=== PATIENT | male | born 2000 | race Caucasian/White ===

== ENCOUNTER 2020-02-22 16:00 | Outpatient (REF) | payer MEDICAID, SELFPAY ==
[2020-02-26 02:13] LABS: SARS-CoV-2 RNA Undetected (Undetected); SARS-CoV-2 Specimen Source Nasopharynx
== END 2020-02-22 16:20 ==
LOC: NCHCN 16:00
PROVIDERS: PCP Nurse Practitioner Family; Visit Provider Nurse Practitioner Family
DX: R50.9 Fever, unspecified (principal); R51 Headache; J02.9 Acute pharyngitis, unspecified
CPT/HCPCS: U0003

== ENCOUNTER 2024-05-21 17:29 | Emergency (ER) | payer MEDICAID, SELFPAY ==
[2024-05-21 17:30] VITALS: BP 135/74; PULSE 68; RESP 16; TEMP 36.6; O2SAT 98
[2024-05-21 17:35] VITALS: BP 135/74; PULSE 68; RESP 16; TEMP 36.6; O2SAT 98
--- NOTE | 2024-05-21 17:39 | ED.GENADUL_ITS ---
Discharge Plan Disposition Patient Disposition: Home Condition: Stable Discharge Details Clinical Impression: Epitrochlear adenopathy Primary Care Provider: Unknown,Unknown ED Provider: Chinmay Sparrow Home Meds and New Rx's Prescriptions: No Action No Known Home Meds Discharge Instructions Instructions: Lymphadenitis Additional Instructions: You were seen in the emergency department for the inflammation of your epitrochlear lymph node. This likely needs to be examined by ultrasound, I am placing you on the list to get primary care established, if you have trouble establishing primary care within a reasonable timeline you could return to the emergency department Wednesday through Wednesday during the day for ultrasound. Otherwise please apply hot compress to the area and take regular dose of anti- inflammatories and see if the mild lymphadenopathy goes down, please return to the emergency department for any severe increase in swelling unintentional weight loss or loss of appetite or drenching night sweats. HPI General Date/Time Provider Initiated Documentation: 05/21/24 17:36 . HPI Narrative: 23 year-old male presents to ED today by POV/ambulating with a chief complaint of L elbow lump, mild pain with onset noticed yesterday. Quality described as tender to touch, no radiation to redness, unilateral arm swelling, firm or hard or asymmetrical nodular swelling, numbness or tingling, neck pain, shoulder pain, endorses some pain in his axilla without palpable abnormality the other day. Severity is described as mild to moderate. Palliating factors include nothing specific attempted. Provoking factors include nothing specific. Events leading up to the incident/Associated Symptoms: Patient denies history of any cat scratches or other laceration pathology or abrasions to this extremity. Patient not anticoagulated. Related Data Home Medications ?Medication ?Instructions ?Recorded ?Confirmed Unknown [No Known Home Meds] 04/29/13 05/21/24 Allergies Allergy/AdvReac Type Severity Reaction Status Date / Time No Known Allergies Allergy Unverified 05/21/24 17:33 General Stated Complaint: GenMedical ARLIN: 3 Review of Systems All systems reviewed & are unremarkable except as noted in HPI and below Exam Narrative Exam Narrative: GENERAL APPEARANCE: Well-nourished, non-toxic, awake and alert, atraumatic, no acute distress. SKIN: Warm, pink, dry, intact, without rashes/lesions/ulcerations. HEAD: Normocephalic, atraumatic, normal hair distribution for gender/age. EYES: Normal conjunctiva, no exudates on lids/lashes. ENT: Nares patent, no circumoral cyanosis, no facial swelling NECK: Supple, trachea midline, painless cervical ROM. LUNGS/CHEST: Non-labored respirations, normal A/P diameter, symmetrical expansion, no chest wall deformity HEART (CV/PV): No peripheral edema, no JVD. ABDOMEN: Soft, non-distended, no guarding. MSK: Normal ROM, no swelling/deformity to bilateral UEs or LEs, moving all extremities without weakness, no cyanosis, spine midline without tenderness, normal curvature, mild lymphadenopathy of the left epitrochlear lymph node, no axillary lymphadenopathy palpable, no redness, no unilateral arm swelling, neurovascular intact distal NEURO: Mental Status AAOx4 - alert to person, place, time, events No facial droop, no forehead involvement. Motor: No focal weakness - strength 5/5 in bilateral UEs and LEs, proximal and distal, symmetric. Sensory: sensation intact to light touch globally. Gait normal: patient ambulated without ataxia into ED room. PSYCH: euthymic, cooperative, pleasant, appropriate speech Course Vital Signs Vital signs: Vital Signs Temperature 36.6 C 05/21/24 17:30 Pulse 68 05/21/24 17:30 Respiratory Rate 16 05/21/24 17:30 Blood Pressure 135/74 05/21/24 17:30 Pulse Oximetry 98 05/21/24 17:30 Temperature 36.6 C 05/21/24 17:35 Temperature Source Oral 05/21/24 17:35 Pulse 68 05/21/24 17:35 Respiratory Rate 16 05/21/24 17:35 Respiratory Effort Normal, Non-Labored 05/21/24 17:33 Blood Pressure 135/74 05/21/24 17:35 Blood Pressure Position Sitting 05/21/24 17:35 Pulse Oximetry 98 05/21/24 17:35 Oxygen Delivery Method Room Air 05/21/24 17:35 Oxygen Flow Rate 0 05/21/24 17:35 Pain Level 2 05/21/24 17:35 Medical Decision Making This dictation utilizes [id number]-mv-ghus dictation software and may contain unedited grammatical errors. 23 year-old male presents to ED today by POV/ambulating with a chief complaint of L elbow lump, mild pain with onset noticed yesterday. Quality described as tender to touch, no radiation to redness, unilateral arm swelling, firm or hard or asymmetrical nodular swelling, numbness or tingling, neck pain, shoulder pain, endorses some pain in his axilla without palpable abnormality the other day. Severity is described as mild to moderate. Palliating factors include nothing specific attempted. Provoking factors include nothing specific. Events leading up to the incident/Associated Symptoms: Patient denies history of any cat scratches or other laceration pathology or abrasions to this extremity. Patients' medical history: Negative, otherwise healthy. Family and social history: Noncontributory. Pertinent exam findings / vital signs include mild lymphadenopathy of the left epitrochlear lymph node, no axillary lymphadenopathy palpable, no redness, no unilateral arm swelling, neurovascular intact distal. Differential / pathologies of concern include reactive lymphadenopathy, unlikely cat scratch disease, unlikely HIV or other pathology, unlikely clot pathology. Diagnostic studies of: -D-dimer, negative. Interventions of: -None. ED Course/Assessment/Plan: 23-year-old male presents with tenderness to epitrochlear lymph node, otherwise has no acute pathology, cannot recall any laceration or abrasion to the area, he may be having reactive lymphadenopathy but I think he should undergo an outpatient ultrasound of this lymph node, he has no primary care but I do recommend that he establish this and placed him on referral list I think there is no emergent pathology occurring and that he can pursue an outpatient workup for this problem as there is no ultrasound at this time at this facility. Findings not consistent with infection, constitutional syndrome. Disposition of epitrochlear adenopathy. Patient verbalized understanding of the plan and return to ED criteria and engaged in shared decision making. Medical Records Medical records reviewed: Yes I reviewed the patient's medical records. Quality:[facility] Health Related Social Needs: No Data to Display [facility] All Active Problems (Updated 05/21/24 @ 18:50 by JAMES Tello) Epitrochlear adenopathy (Acute) Social History Smoking/Tobacco Use Status: Current every day Tobacco Type: cigarettes Smoking risk assessment performed?: Yes Alcohol Intake: current Alcohol Intake frequency: a few times a month Drug use: Daily Substance use type: marijuana Do you feel safe at home: Yes Do you feel safe in your relationship?: Yes
[2024-05-21 18:29] LABS: D-Dimer 166 ng/mlFEU (<500)
--- OUTSIDE RECORDS SUMMARY | 2024-05-21 18:42 | XMS_ITS | Clinical Summary ---
Author Organization [facility] Address [address] [place] [id number] Care Team Providers Care Trust Clerk Name Role Phone Perfecto Messina MD Primary Care Provider Unavailabl e Allergies No known active allergies Medications No known medications Active Problems Problem Noted Date Diagnosed Date Syncope and collapse 07/25/2013 Surgical History Surgery Date Site/Laterality Comments ELBOW SURGERY after a brake at 7 years old no complications Family History Medical History Relation Comments Cancer Maternal Grandfather Congenital heart defects Other hole in heart with surgery repair Relation Status Comments Father Alive Maternal Grandfather (Age 57) Maternal Grandmother Alive Mother Alive Other Alive Paternal Grandfather Alive Paternal Grandmother Alive Sister 1 Alive 01/01/99 heal thy Sister 2 Alive hea lthy Social History Tobacco Use Types Packs/Day Years Used Date Smoking Tobacco: Never Alcohol Use Standard Drinks/Week Comments Not Asked 0 (1 standard drink = 0.6 oz pur e alcohol) Interpersonal Safety Answer Date Record ed Physically Hurt Never 01/07/2020 Verbally Threaten Not on file 01/07/2020 Sex and Gender Information Value Date Recorded Sex Assigned at Not on file Legal Sex Male 10:37 EST Gender Identity Not on file Sexual Orientation Not on file History Length Weight Head Circum Date/Time Gestation Age D/C Weight APGARs Delivery Method Feeding 7 lb (3.175 kg) 2000 40 wks Vaginal, Spontaneous No complications Obstetrics History Last Filed Vital Signs Vital Sign Reading Time Taken Comments Blood Pressure 95/54 07/24/2013 1008 EST right arm sitting up Pulse 96 07/24/2013 1008 EST Temperature - - Respiratory Rate 20 07/24/2013 1008 EST Oxygen Saturation 100% 07/24/2013 100 8 EST Inhaled Oxygen Concentration - - Weight 41.8 kg (92 lb 2.4 oz) 07/24/2013 1008 EST Height 163.5 cm (5' 4.37) 07/24/2013 1 008 EST Body Mass Index 15.64 07/24/2013 1008 EST Plan of Treatment Health Maintenance Due Date Last Done Comments Hepatitis C Screen 2000 Hepatitis B Vaccine (1 of 3 - 19+ 3-dose series) 05/29 COVID-19 Vaccine (2023- season) 2024 Insurance MEDICAID O [place] Care Teams Trust Clerk Relationship Specialty Start Date End Date Perfecto Messina MD PCP - General 07/04/13
--- OUTSIDE RECORDS SUMMARY | 2024-05-21 18:42 | XMS_ITS | Referral Summary ---
Author Organization [facility] Address [address] [place] [address] Care Team Providers Care Puppet Developer Name Role Phone Perfecto Messina MD Primary Care Provider Unavailabl e Allergies No known active allergies Medications No known medications Active Problems Problem Noted Date Diagnosed Date Syncope and collapse 07/25/2013 Social History Tobacco Use Types Packs/Day Years [...] on file Sexual Orientation Not on file Last Filed Vital Signs Vital Sign Reading [...] 15.64 07/24/2013 1008 EST Plan of Treatment Not on file Insurance [place] Care Teams Puppet Developer Relationship Specialty Start Date End Date Perfecto Messina MD PCP - General 07/04/13
--- OUTSIDE RECORDS SUMMARY | 2024-05-21 18:42 | XMS_ITS | Encounter Summary ---
Author Organization [facility] Address [address] [place] [address] Care Team Providers Care Fuselage Framer Name Role Phone Perfecto Messina MD Primary Care Provider Unavailabl e Reason for Visit * Reason Onset Date Comments Referral Request 07/04/2013 Encounter Details Date Type Department Care Team (Late st Contact Info) Description 07/04/2013 Telephone [facility] Pediatric Cardiology - [facility] [address] [place], [place] [id number] Marcell Benitez MD [address] [place] [phone] Referral Request Social History Tobacco Use Types Packs/Day Years Used Date Smoking Tobacco: Never Assessed Sex and Gender Information Value Date Recorded Sex Assigned at Not on file Legal Sex Male 10:37 EST Gender Identity Not on file Sexual Orientation Not on file documented as of this encounter Miscellaneous Notes * Telephone Encounter - Kandi Arrieta - 07/04/2013 6745 EST Pierre Mcghee 2000 [id number] New Patient Appointment: Referring MD: Dr. Messina Dx: Syncope, 4 spells in last year Tests: ECG in office (copy rec'd), labs (copy rec'd) Other: Office notes rec'd Ins[place] [id number] Appt: Jul [address] Benitez New patient info pack sent: 07/05 documented in this encounter Plan of Treatment Not on file documented as of this encounter Visit Diagnoses Not on filedocumented in this encounter Care Teams Fuselage Framer Relationship Specialty Start Date End Date Perfecto Messina MD PCP - General 07/04/13 documented as of this encounter
--- OUTSIDE RECORDS SUMMARY | 2024-05-21 18:42 | XMS_ITS | Encounter Summary ---
Author Organization [facility] Address [address] [place] [address] Care Team Providers Care Felting Machine Operator Name Role Phone Perfecto Messina MD Primary Care Provider Unavailabl e Reason for Visit * Reason Comments Heart Problem NPV Syncope. In the past year or so has had 4 episodes of syncope. Has some dizziness without syncope every month. No hospitalizations or illnesses. Energy level is good. Gym class is his only actiivity. Coffee every day. Eating well and sleep well. No CP or SOB. Pale looking on a regular basis. No cyanosis. No anxiety. No other health concerns. Encounter Details Date Type Department Care Team (Late st Contact Info) Description 07/24/2013 9:30 EST Office Visit [facility] - [facility] [place] [address] [place] [phone] Imelda Serrato MD [address] [place] [phone] Syncope and collapse (Primary Dx) Social History Tobacco Use Types Packs/Day Years Used Date Smoking Tobacco: Never Alcohol Use Standard Drinks/Week Comments Not Asked 0 (1 standard drink = 0.6 oz pur e alcohol) Sex and Gender Information Value Date Recorded Sex Assigned at Not on file Legal Sex Male 10:37 EST Gender Identity Not on file Sexual Orientation Not on file documented as of this encounter Last Filed Vital Signs Vital Sign Reading [...] Body Mass Index 15.64 07/24/2013 1008 EST Body Mass Index Percentile 5.98% 07/24 1008 EST Growth Chart: [facility] (Boys, 2-2 0 Years) documented in this encounter Progress Notes * Imelda Serrato MD - 07/25/2013 1018 EST Subjective: Patient ID: Pierre Nuñez is an 13 y.o. male. Chief Complaint Patient presents with ??? Heart Problem NPV Syncope. In the past year or so has had 4 episodes of syncope. Has some dizziness without syncope every month. No hospitalizations or illnesses. Energy level is good. Gym class is his only actiivity. Coffee every day. Eating well and sleep well. No CP or SOB. Pale looking on a regular basis. Nocyanosis. No anxiety. No other health concerns. LLOYD Jay is a 13 year old seen in consultation at the request of Dr. Messina regarding a history of recurrent syncope. He has fainted 4 times over the last year. The first occurred after gym class activity. He does notrecall the exact details. The school called his mother to report that he had had a fainting episode. He was not injured. He does not believe that the event took a took place at peak exercise. He has had 3 other events. One occurred at home shortly after he got out of bed in the morning. He was on an upstairs landing when he felt lightheaded and eventually fell to the floor without injury. He had an additional event in the library, and the most recent one occurring in the kitchen and witnessed by his mother. Pierre describes a fairly typical sequence of events. Initially he will began experiencing visual changes with narrowing of his visual monsalve. He then experiences some nausea and sweating. He does notdescribe any auditory changes. He does notice some change in his color perception. After a period of perhaps 30 seconds, he falls to the floor. On the occasion witnessed by his mother, she said he looked quite pale and she held him up and eased him to the floor. In all cases he recovered consciousness quite quickly. He does not describe persistent fatigue or disorientation after fainting. He doesnot describe any palpitations or tachycardia. There have been no seizure-like movements during the episodes. He says he feels dizziness almost daily, but most of it sounds as though it is orthostaticand transient. Other than these episodes, he has had no other significant medical events. He does not describe anychange in his energy level or exercise tolerance. He is not involved in any athletic circumstances,but has no difficulty with routine activity. He has had no major illnesses recently. He has had no history of chronic coughing, wheezing, or respiratory difficulties. He is not currently on any medication. He drinks coffee and juice daily, but does not have a large intake of water. His dietary history sounds unremarkable. He came to today's with his mother, who is anxious about these episodes, but who has no other concerns about his health. There is no family history of sudden early or fainting. There is no problem list on file for this patient. History reviewed. No pertinent past medical history. Length Weight Head Circum Discharge Weight as of 07/24/2013 3175 g (7 lb) Gestation Age (wks) Delivery Method Duration of Labor Feeding 40 Vaginal, Spontaneous Delivery 1 5 10 Days in Hospital Hospital Name Hospital Location Comments No complications Past Surgical History Procedure Laterality Date ??? Elbow surgery after a brake at 7 years old no complications Family History Family Problem Relation Name Age of Onset Comments Source as of 07/24/2013 Cancer Maternal Grandfather Provider Congenital heart defects Other moms cousin hole in heart with surgery repair Provider Family Status Relation Name Status Age Comments Source as of 07/24/2013 Mother Alive Provider Father Alive Provider Sister Arlyn Alive 01/01/99 healthy Provider Maternal Grandmother Alive Provider Maternal Grandfather 57 Provider Paternal Grandmother Alive Provider Paternal Grandfather Alive Provider Other moms cousin Alive Provider Sister Kayla Alive healthy Provider Social Social History ??? Lives with Parents ??? Mother's name Maryjane ??? Father's name Florencio ??? Education Grade 7 ??? Reported academic performance Doing well History Social History ??? Marital Status: Single Spouse Name: N/A Number of Children: N/A ??? Years of Education: N/A Occupational History ??? Not on file. Social History Main Topics ??? Smoking status: Never Smoker ??? Smokeless tobacco: Not on file ??? Alcohol Use: Not on file ??? Drug Use: Not on file ??? Sexually Active: Not on file Other Topics Concern ??? Not on file Social History Narrative ??? No narrative on file No outpatient prescriptions have been marked as taking for the 07/24/13 encounter (Office Visit) with Imelda Serrato MD. No Facility-Administered Medications for the 07/24/13 encounter (Office Visit) with Imelda Serrato MD. Allergies No Known Allergies ROS A general 10 point review of systems was performed and was negative except as noted. Objective: BP 95/54 Pulse 96 Resp 20 Ht 163.5 cm (64.37) Wt 41.8 kg (92 lb 2.4 oz) BMI 15.64 kg/m2 SpO2 100% Body mass index is 15.64 kg/(m^2). Body surface area is 1.38 meters squared. 6%ile based on CDC 2-20 Years BMI-for-age data. Normalized sfcwhi-zku-xuiqbfgas length data available only for age 0 to 36 months. 78%ile based on CDC 2-20 Years xkdlqpu-jkh-uyr data. 29%ile based on CDC 2-20 Years vknlzx-mvv-oai data. Extended Vitals 07/24/2013 BP -- BP Device BP Machine BP Cuff Location Right leg BP Cuff Sizes -- Patient Position Sitting Physical Exam General: Alert and oriented. Age appropriate interaction Neurologic: Normal strength and muscle tone. HEENT: [place] mucosa. No cervical adenopathy. Midline trachea. Normal thyroid. No venous distension. Chest: No pectus. Quiet precordium. Normal, symmetric aeration. No wheezes or rales. Normal respiratory effort. Abdomen: Soft. No masses. Liver not enlarged. Extremities: Warm with normal perfusion. Normal brachial and femoral pulses. No lower extremity pulse delay. Cardiac: Normal first heart sound. Physiologically split second heart sound with normal pulmonic component. No significant murmurs.. No gallops. No click. Testing and Laboratory Preliminary Results: ECG: Normal. No preexcitation. Normal QT interval. Assessment and Plan: Pierre has a typical history of vasovagal syncope. I do not think that these events represent underlying cardiac pathology or arrhythmia. His examination and electrocardiogram are normal. We discussedthe mechanism of fainting. I also explained that this is a fairly common symptom in teenagers. We discussed hydration, including carrying a water bottle in school. Most importantly, I explained that when he develops typical visual symptoms, he needs to get his head as low as possible. Ideally, thiswould be on the floor with his feet propped up. This should abort any further episodes. I do not think there needs to be any change in his activity recommendations. I also told him that we would wantto know if he experiences any sensation of palpitations or tachycardia as his first symptom, or anyfainting at peak exercise. I have not scheduled a followup appointment, but the family will be in touch if they have any additional concerns. I think they were quite reassured by today's discussion. Armando shay will attempt to increase his hydration, which should blunt further symptoms. documented in this encounter Plan of Treatment Not on file documented as of this encounter Procedures Procedure Name Priority Date/Time Associated Diagnosis Comments ECG REPORT - SCANNED 07/28/2013 11:11 EST EKG 12-LEAD Routine 07/24/2013 10:19 EST Syncope and collapse documented in this encounter Results * ECG REPORT - SCANNED (07/28/2013 11:11 EST) 07/28/2013 11:1 1 EST us Scan 2 Soda Jerker PROCEDURE/MINOR SURGICAL OR DERABLES Final Result * EKG 12-LEAD (07/24/2013 10:19 EST) 07/24/2013 10:1 9 EST Narrative [facility] EKG - 07/25/2013 15:27 EST ?[facility] ? Test Date: ?2013-07-24 Pat Name: ? PIERRE SAVANNAH ? Department: ?? Pedi-Card ? Room: ? Gender: ? M ?String Studies Director: ?? [id number] : ?2000 ? Requested By: IMELDA SERRATO MD Order Number: [id number] ? Reading MD: ?? IMELDA SERRATO MD ? Measurements Intervals ?Bangs ? Rate: ? 74 ? P: ?66 NV: ? 157 ?QRS: ?89 QRSD: ? 85 ? T: ?70 QT: ? 389 ? QTc: ?416 ? Interpretive Statements ..PEDIATRIC ECG INTERPRETATION SINUS RHYTHM No previous ECG available for comparison I have reviewed the tracing and have either agreed or edited the findings in this report. Electronically Signed On 07-25-13 15:27:13 EST by IMELDA SERRATO MD. Procedure Note Imelda Serrato MD - 07/25/2013 [facility] Test Date: 2013-07-24 Pat Name: PIERRE NUÑEZ Department: Pedi-Card Room: Gender: String Studies Director: [id number] : 2000 Requested By: IMELDA SERRATO MD Order Number: [id number] Reading MD: IMELDA SERRATO MD Measurements Intervals Bangs Rate: 74 P: 66 NV: 157 QRS: 89 QRSD: 85 T: 70 QT: 389 QTc: 416 Interpretive Statements ..PEDIATRIC ECG INTERPRETATION SINUS RHYTHM No previous ECG available for comparison I have reviewed the tracing and have either agreed or edited the findingsin this report. Electronically Signed On 07-25-13 15:27:13 EST by [facility]. us Imelda Serrato MD CARDIAC ECG ORDERABLES Fin al Result [facility] EKG documented in this encounter Visit Diagnoses Diagnosis Syncope and collapse- Primary documented in this encounter Care Teams Felting Machine Operator Relationship Specialty Start Date End Date Perfecto Messina MD PCP - General 07/04/13 documented as of this encounter
[2024-05-21 18:55] VITALS: BP 89/55; PULSE 78; RESP 18; O2SAT 98
[2024-05-21 18:59] VITALS: BP 89/55; PULSE 78; RESP 18; O2SAT 98
[2024-05-21 19:00] VITALS: RESP 18; O2SAT 98
== END 2024-05-21 19:01 | disposition home or self-care (01) ==
PROVIDERS: Emergency Provider Physician Assistant
DX: M25.522 Pain in left elbow (principal); R59.0 Localized enlarged lymph nodes; F17.210 Nicotine dependence, cigarettes, uncomplicated
CPT/HCPCS: 36415; 99283; 85379